=== PATIENT | male | born 2005 | race Caucasian/White ===

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

== ENCOUNTER 2023-10-02 15:57 | Emergency (ER) | payer MEDICAID, OTHER ==
[~2023-10-02] VITALS: Ht 165.1 cm; Wt 59.0 kg
[~2023-10-02 15:57] MED LIST: CETI-80 PO; PRED50TA PO
[2023-10-02 17:06] VITALS: BP_SYST 144; PULSE 84; RESP 18; TEMP 98; O2SAT 100
[2023-10-02] MEDS: ACETAMINOPHEN 500 MG TABLET PO ONE (18:05)
[2023-10-02] MEDS: AMOXICILLIN 500 MG CAPSULE PO ONE (18:47)
[2023-10-02] MEDS: KETOROLAC TROMETHAMINE 30 MG VIAL IM ONE (18:55)
[2023-10-02] MEDS ORDERED: CEPH-548 PO (18:58)
[2023-10-02] MEDS ORDERED: IBUP-1969 PO (18:58)
[2023-10-02] MEDS ORDERED: HYDR-3927 PO (18:58)
[2023-10-02] MEDS ORDERED: AMOX500C2 PO (19:16)
[2023-10-02] MEDS ORDERED: FLUT16SP16 NS (19:16)
[2023-10-02 19:25] VITALS: BP_SYST 135; PULSE 80; RESP 17; TEMP 98.1; O2SAT 99
== END 2023-10-02 19:15 | disposition home or self-care (01) ==
LOC: SED 15:57
DX: J32.8 Other chronic sinusitis (principal); R51.9 Headache, unspecified; Z79.899 Other long term (current) drug therapy; Z79.2 Long term (current) use of antibiotics
CPT/HCPCS: 99285; 70450; 96372; J1885